=== PATIENT | male | born 1975 | race Caucasian/White ===

== ENCOUNTER → 2021-05-21 | Outpatient (CLI) | payer MEDICARE, OTHER ==
[~2021-05-21] MED LIST: CITALOPRAM HBR40 MG PO; CLINDAMYCIN HC300 MG PO; CLOPIDOGREL75 MG PO; FISH OIL 1,0001 EAC1 PO; FLORASTOR250 MG PO; GABAPENTIN100 MG PO; GLIPIZIDE5 MG PO; KEFLEX CAP 250250 MG PO; LISINOPRIL10 MG PO; METFORMIN HCL1000 MG PO; METOPROLOL TART25 MG PO; NOVOLIN 70100 UNIT/2 SQ; PERCOCET 5/325 T1 EA PO; SILVADENE CREAM20 GM TOP; ZOCOR40 MG PO
== END ==
LOC: KOH-I 16:07
DX: L03.115 Cellulitis of right lower limb (principal); M25.471 Effusion, right ankle
CPT/HCPCS: 73610

== ENCOUNTER 2021-05-22 11:08 | Inpatient (IN) | payer MEDICARE, OTHER ==
[~2021-05-22] VITALS: Ht 177.8 cm; Wt 104.8 kg
[2021-05-22 12:18] LABS: HEMOGLOBIN 12.2 gm/dl (14.0-17.5); RED BLOOD COUNT 4.2 M/UL (4.20-5.50); WHITE BLOOD COUNT 13.4 K/UL (4.5-11.0)
[2021-05-22 12:45] LABS: BUN/CREATININE RATIO 13 (0-10)
[2021-05-22] MEDS ORDERED: SILVADENE CREAM20 GM TOP (13:21)
[2021-05-22] MEDS ORDERED: CLINDAMYCIN HC300 MG PO (13:22)
[2021-05-22] MEDS ORDERED: CITALOPRAM HBR40 MG PO (13:22)
[2021-05-22] MEDS ORDERED: GLIPIZIDE5 MG PO (13:23)
[2021-05-22] MEDS ORDERED: CLOPIDOGREL75 MG PO (13:23)
[2021-05-22] MEDS ORDERED: NOVOLIN 70100 UNIT/2 SQ (13:24)
[2021-05-22] MEDS ORDERED: METFORMIN HCL1000 MG PO (13:25)
[2021-05-22] MEDS ORDERED: LISINOPRIL10 MG PO (13:25)
[2021-05-22] MEDS ORDERED: METOPROLOL TART25 MG PO (13:25)
[2021-05-22] MEDS ORDERED: ZOCOR40 MG PO (13:26)
[2021-05-22] MEDS ORDERED: FISH OIL 1,0001 EAC1 PO (13:27)
[2021-05-22] MEDS ORDERED: GABAPENTIN100 MG PO (13:28)
[2021-05-23 05:44] LABS: HEMOGLOBIN 11.1 gm/dl (14.0-17.5); RED BLOOD COUNT 3.87 M/UL (4.20-5.50); WHITE BLOOD COUNT 10.6 K/UL (4.5-11.0)
[2021-05-24 06:09] LABS: HEMOGLOBIN 10.8 gm/dl (14.0-17.5); RED BLOOD COUNT 3.75 M/UL (4.20-5.50); WHITE BLOOD COUNT 8.6 K/UL (4.5-11.0)
[2021-05-24 07:02] LABS: BUN/CREATININE RATIO 11 (0-10)
[2021-05-25 07:12] LABS: HEMOGLOBIN 11.3 gm/dl (14.0-17.5); RED BLOOD COUNT 4.08 M/UL (4.20-5.50); WHITE BLOOD COUNT 10.2 K/UL (4.5-11.0)
[2021-05-25 07:45] LABS: BUN/CREATININE RATIO 18 (0-10)
[2021-05-25] MEDS ORDERED: PERCOCET 5/325 T1 EA PO (12:35)
[2021-05-25] MEDS ORDERED: KEFLEX CAP 250250 MG PO (12:35)
[2021-05-25] MEDS ORDERED: FLORASTOR250 MG PO (12:35)
== END 2021-05-25 14:43 | disposition home health service (06) | DRG 264 ==
LOC: ER1 11:08 → M/S 12:35 → CDU 12:35 → M/S 15:00
PROVIDERS: Internal Medicine; Physician Assistant; Surgery; ADMIT Internal Medicine
PROC: 0JBQ0ZZ Excision of Right Foot Subcutaneous Tissue and Fascia, Open Approach (ICD-10-PCS; principal; 2021-05-24 17:08)
DX: E11.52 Type 2 diabetes mellitus with diabetic peripheral angiopathy with gangrene (principal); L03.115 Cellulitis of right lower limb; I96 Gangrene, not elsewhere classified; E11.621 Type 2 diabetes mellitus with foot ulcer; I10 Essential (primary) hypertension; E78.5 Hyperlipidemia, unspecified; J45.909 Unspecified asthma, uncomplicated; Z20.822 Contact with and (suspected) exposure to COVID-19; F32.A Depression, unspecified; E66.01 Morbid (severe) obesity due to excess calories; Z88.0 Allergy status to penicillin; Z86.73 Personal history of transient ischemic attack (TIA), and cerebral infarction without residual deficits; Z82.49 Family history of ischemic heart disease and other diseases of the circulatory system; Z68.33 Body mass index [BMI] 33.0-33.9, adult; L97.519 Non-pressure chronic ulcer of other part of right foot with unspecified severity
CPT/HCPCS: 36415; 73610; 80048; 80053; 80202; 82962; 83605; 85025; 85652; 86140; 87040; 87070; 87077; 87186; 87205; 96374; 96375; 99284; J0692; J1100; J1650; J2001; J2250; J2405; J2704; J3010; J3370; J7030; J7070; J7120; U0002

== ENCOUNTER 2021-07-24 13:59 | Emergency (ER) | payer MEDICARE, OTHER, MEDICAID ==
[2021-07-24 15:08] LABS: RED BLOOD COUNT 5.29 M/UL (4.20-5.50); WHITE BLOOD COUNT 15.9 K/UL (4.5-11.0)
[2021-07-24] MEDS ORDERED: ZOFRAN 4 MG TAB4 MG PO (21:09)
== END 2021-07-24 21:30 | disposition home or self-care (01) ==
LOC: ER1 13:59
PROVIDERS: Physician Assistant
DX: R11.2 Nausea with vomiting, unspecified (principal); E11.9 Type 2 diabetes mellitus without complications; Z20.822 Contact with and (suspected) exposure to COVID-19
CPT/HCPCS: 36600; 51702; 71045; 80053; 81001; 82009; 82550; 82553; 82803; 83690; 84484; 85025; 93005; 96374; 96375; 99284; J2405; J2550; J7030; Q9967; U0002